=== PATIENT | male | born 1940 | race Caucasian/White ===

== ENCOUNTER 2022-05-19 14:42 | Inpatient (IN) | payer OTHER ==
[~2022-05-19] VITALS: Ht 177.8 cm; Wt 74.9 kg
[2022-05-19] MEDS ORDERED: FURO-151 PO (15:05)
[2022-05-19] MEDS ORDERED: CLOP75TA15 PO (15:05)
[2022-05-19] MEDS ORDERED: AZEL137S7 BNOSTRILS (15:05)
[2022-05-19] MEDS ORDERED: FAMO-132 PO (15:05)
[2022-05-19] MEDS ORDERED: ROSU40TA PO (15:05)
[2022-05-19] MEDS ORDERED: BISO5TAB20 PO (15:05)
[2022-05-19] MEDS ORDERED: LISI2.5T14 PO (15:05)
[2022-05-19] MEDS ORDERED: PRED20TA PO (15:05)
[2022-05-19] MEDS ORDERED: EMPA25TA PO (15:05)
[2022-05-19 15:36] LABS: *BILIRUBIN,URIN NEGATIVE (NEGATIVE); *BLOOD, URINE NEGATIVE (NEGATIVE); *CLARITY,URINE CLEAR (CLEAR); *COLOR,URINE YELLOW (YELLOW); *KETONES,URINE TRACE (NEGATIVE); *UROBILINOGEN,URINE 0.2 E.U./dl (NORMAL); LEUKOCYTE ESTERASE ,URINE NEGATIVE (NEGATIVE); NITRITE, URINE NEGATIVE (NEGATIVE); PH,URINE 5.5 (5.0-8.0)
--- NOTE | 2022-05-19 15:39 | NUR ---
PT IS IN ROOM #2B. DR SPARKS EVALUATED THE PT.
[2022-05-19 15:47] LABS: UGLUCOSE 2+ (NEGATIVE)
[2022-05-19 15:50] LABS: HEMATOCRIT 49.2 % (36.7-47.1); MEAN CORPUSCULAR VOLUME 93.3 fL (73.0-96.2); PLATELET COUNT (AUTO) 253 K/uL (152-348)
[2022-05-19 16:01] LABS: BACTERIA,URINE NONE SEEN /HPF (NONE SEEN); RBC,URINE 0-3 /HPF (0-3); SQUAMOUS EPITHELIAL CELL,UR FEW /HPF (NONE SEEN); WBC,URINE 0-3 /HPF (0-3)
[2022-05-19 16:06] LABS: ALANINE AMINOTRANSFERASE 26 U/L (16-63); ALKALINE PHOSPHATASE 62 U/L (50-136); ASPARTATE AMINOTRANSFERASE 11 U/L (15-37); BILIRUBIN,DIRECT 0.2 mg/dL (0.0-0.2); BILIRUBIN,TOTAL 0.6 mg/dL (0.2-1.0); CARBON DIOXIDE 24 mmol/L (21-32); CHLORIDE 94 mmol/L (98-107); CREATININE 1.6 mg/dL (0.6-1.3); POTASSIUM 5.2 mmol/L (3.5-5.1); TOTAL PROTEIN, SERUM 7.4 g/dL (6.4-8.2); UREA NITROGEN, BLOOD 49 mg/dL (7-18)
[2022-05-19 16:07] LABS: GLUCOSE 577 mg/dL (74-106)
[2022-05-19] MEDS ORDERED: AZITHROMYCIN IV 500 MG in IV DEXTROSE 5% 250 ML IV ONE (16:15)
[2022-05-19] MEDS ORDERED: CEFTRIAXONE 1 G in IV DEXTROSE 5% 50 ML IV ONE (16:15)
[2022-05-19] MEDS ORDERED: INSULIN REGULAR, HUMAN 300 UNIT/3 ML VIAL SQ ONE (16:30)
[2022-05-19] MEDS ORDERED: IV NORMAL SALINE 1000 ML BAG IV ONE (17:15)
[2022-05-19] MEDS ORDERED: CEFTRIAXONE /D5W 50ML IVPB **ER PYXIS IV ONE (17:27)
[2022-05-19] MEDS ORDERED: HUM INSULIN NPH/REG INSULIN HM 70/30 1000 UNITS/10 ML VIAL SQ ONE (17:28)
[2022-05-19] MEDS ORDERED: AZITHROMYCIN 500MG/ D5W 250ML IVPB **ER PYXIS ONLY IV ONE (17:52)
--- NOTE | 2022-05-19 20:40 | NUR ---
Patient has been accepted by Dr Knox
--- NOTE | 2022-05-19 20:41 | NUR ---
called data warehouse manager Kathleen VALADEZ for bed. no beds available. patient will stay in ER
[2022-05-19] MEDS ORDERED: ONDANSETRON 4 MG/2 ML VIAL IV PRN (20:45)
[2022-05-19] MEDS ORDERED: MORPHINE SULFATE 2 MG/1 ML DISP.SYRIN IV PRN (20:45)
[2022-05-19] MEDS ORDERED: ACETAMINOPHEN 325 MG TABLET PO PRN (20:45)
[2022-05-19] MEDS ORDERED: ALBUTEROL SULFATE 2.5 MG/ 0.5 ML NEBU NEB PRN (21:00)
[2022-05-19] MEDS ORDERED: DEXTROSE 50% 50 ML DISP.SYRIN IV PRN (21:00)
--- NOTE | 2022-05-19 21:30 | NUR ---
Spoke to pharmacy regarding medication verification.
[2022-05-19] MEDS: BLOOD SUGAR DIAGNOSTIC 1 EACH STRIP VI SCH (21:57)
[2022-05-19] MEDS ORDERED: DOCUSATE SODIUM 100 MG CAPSULE PO ONE (22:00)
--- NOTE | 2022-05-19 22:00 | NUR ---
Patient is able to ambulate to the restroom without assistance
[2022-05-19] MEDS ORDERED: INSULIN GLARGINE,HUM 300 UNITS/3 ML CARTRIDGE SQ ONE (22:01)
[2022-05-19] MEDS: INSULIN GLARGINE,HUM 300 UNITS/3 ML CARTRIDGE SQ SCH (22:07)
[2022-05-19] MEDS: DOCUSATE SODIUM 100 MG CAPSULE PO SCH (22:10)
--- NOTE | 2022-05-20 05:54 | NUR ---
Patient looking for his "blue bag", no evidence of other belongings at bedside/nurses station
[2022-05-20] MEDS: PANTOPRAZOLE SODIUM 40 MG TABLET.DR PO SCH (07:00)
[2022-05-20 07:01] LABS: HEMATOCRIT 47.3 % (36.7-47.1); MEAN CORPUSCULAR HEMOGLOBIN 31.5 uug (23.8-33.4); PLATELET COUNT (AUTO) 233 K/uL (152-348)
[2022-05-20 07:29] LABS: BILIRUBIN,TOTAL 0.3 mg/dL (0.2-1.0); CREATININE 1.3 mg/dL (0.6-1.3); MAGNESIUM 2.7 mg/dL (1.8-2.4); PHOSPHOROUS 5.6 mg/dL (2.5-4.9); POTASSIUM 3.8 mmol/L (3.5-5.1); TOTAL PROTEIN, SERUM 6.8 g/dL (6.4-8.2)
[2022-05-20] MEDS ORDERED: PANTOPRAZOLE SODIUM 40 MG TABLET.DR PO ONE (07:45)
[2022-05-20] MEDS ORDERED: ALBUTEROL SULFATE 2.5 MG/ 0.5 ML NEBU NEB PRN (07:45)
--- NOTE | 2022-05-20 08:03 | NUR ---
PT IS RESTING IN BED COMFORTABLY NO S/S OF ACUTE DISTRESS. PT ATE BREAKFAST, 80% OF THE TRAY. PT WENT TO RESTROOM TO URINATE. CONTINUE TO MONITOR THE PT.
[2022-05-20] MEDS: BLOOD SUGAR DIAGNOSTIC 1 EACH STRIP VI SCH ×4 (08:12→20:39)
[2022-05-20] MEDS ORDERED: MORPHINE SULFATE 2 MG/1 ML DISP.SYRIN ONE (08:18)
[2022-05-20] MEDS ORDERED: ONDANSETRON 4 MG/2 ML VIAL ONE (08:18)
[2022-05-20] MEDS ORDERED: CLOPIDOGREL 75 MG TABLET ONE (08:28)
[2022-05-20] MEDS ORDERED: LISINOPRIL 10 MG TABLET ONE (08:29)
[2022-05-20] MEDS: INSULIN GLARGINE,HUM 300 UNITS/3 ML CARTRIDGE SQ SCH ×2 (08:35→20:45)
[2022-05-20] MEDS: CLOPIDOGREL 75 MG TABLET PO SCH (08:55)
[2022-05-20] MEDS ORDERED: CEFTRIAXONE 1 G in IV DEXTROSE 5% 50 ML IV SCH ×2 (09:00→10:00)
[2022-05-20] MEDS ORDERED: LISINOPRIL 5 MG TABLET PO SCH (09:00)
[2022-05-20] MEDS ORDERED: AZITHROMYCIN IV 500 MG in IV DEXTROSE 5% 250 ML IV SCH (09:00)
--- NOTE | 2022-05-20 09:58 | NUR ---
REPORT WAS GIVEN TO SPECIAL SERVICES SUPERVISOR. PT WAS TRANSFERED TO ROOM #322.
--- NOTE | 2022-05-20 10:30 | NUR ---
Patient admitted to Telemetry, Vpacing with HR in the 70's. AAO x3 with forgetfulness to time. Patient states he is fatigued and doesn't feel good. States he has been weak for about a week and is moving slower. SOB noted with exertion, on 02 at 2L via NC. Dry cough noted. NO c/o chest pain. Lungs sounds are clear. ABle to ambulate with one person assist to bathroom, patient is continent of bladder. Patient is asking for a blue travel bag, made aware nothing was brought with him. Call light within reach, all needs attended. Patient verbalizes thirst, water provided.
[2022-05-20] MEDS ORDERED: ALBUTEROL SULFATE 2.5 MG/3 ML NEBU NEB PRN (11:13)
[2022-05-20 11:42] VITALS: BP 94/59
[2022-05-20] MEDS: INSULIN REGULAR, HUMAN 300 UNIT/3 ML VIAL SQ PRN ×2 (12:03→16:53)
[2022-05-20 12:13] LABS: THYROID STIMULATING HORMONE 2.186 mIU/mL (0.358-3.740)
[2022-05-20 16:00] VITALS: BP 92/54
[2022-05-20] MEDS: AZITHROMYCIN IV 500 MG in IV DEXTROSE 5% 250 ML IV SCH (16:46)
[2022-05-20] MEDS: CEFTRIAXONE 1 G in IV DEXTROSE 5% 50 ML IV SCH (18:00)
--- NOTE | 2022-05-20 18:07 | NUR ---
Patient pulled out IV when going to bathroom unassisted. Patient is alert x4 but forgetful. Able to start new IV to left FA 20 gauge. Patient tolerated procedure well. Telemetry is vpacing with HR 75 BPM. Denies any discomfort other than fatigue.
--- NOTE | 2022-05-20 19:30 | NUR ---
Received patient lying in bed. AAOx3. In no acute distress. Denies any pain or SOB. On O2 at2LPM via NC in place. O2 sat at 98%. V pacing on tele with HR of 64/min. Needs assessed and attended to. Safety measure initiated and call light within reached.
[2022-05-20 20:10] VITALS: BP 91/59
[2022-05-20] MEDS: DOCUSATE SODIUM 100 MG CAPSULE PO SCH (20:39)
[2022-05-21] VITALS: BP 101/65
[2022-05-21 04:00] VITALS: BP 107/73
[2022-05-21] MEDS: PANTOPRAZOLE SODIUM 40 MG TABLET.DR PO SCH (06:12)
--- NOTE | 2022-05-21 06:34 | NUR ---
Slept well during the night. In no acute distress. Remains on O2 at 2LPM via NC in place. O2 sat at 96%. Denies any pain or SOB. V pacing on tele with HR of 77/min. Needs attended to and met. Safety measure maintained and call light within reached.
[2022-05-21] MEDS: BLOOD SUGAR DIAGNOSTIC 1 EACH STRIP VI SCH ×5 (06:36→20:19)
[2022-05-21 07:11] LABS: HEMATOCRIT 46.3 % (36.7-47.1); MEAN CORPUSCULAR HEMOGLOBIN 30.4 uug (23.8-33.4); PLATELET COUNT (AUTO) 189 K/uL (152-348)
[2022-05-21 07:26] LABS: CREATININE 1.2 mg/dL (0.6-1.3); MAGNESIUM 2.5 mg/dL (1.8-2.4); PHOSPHOROUS 3.6 mg/dL (2.5-4.9); POTASSIUM 3.9 mmol/L (3.5-5.1)
--- NOTE | 2022-05-21 07:30 | NUR ---
Sleeping, appears comfortable. O2 at 2L/NC with O2 sat of 96%
[2022-05-21] MEDS: CLOPIDOGREL 75 MG TABLET PO SCH (08:37)
[2022-05-21] MEDS: INSULIN GLARGINE,HUM 300 UNITS/3 ML CARTRIDGE SQ SCH ×2 (08:39→20:21)
--- NOTE | 2022-05-21 11:00 | NUR ---
Participated with PT/OT. Call light with in reach. Bed alarm on.
[2022-05-21 11:57] VITALS: BP 118/76
[2022-05-21] MEDS: INSULIN REGULAR, HUMAN 300 UNIT/3 ML VIAL SQ PRN (12:09)
[2022-05-21] MEDS: AZITHROMYCIN IV 500 MG in IV DEXTROSE 5% 250 ML IV SCH (15:52)
[2022-05-21 16:10] VITALS: BP 95/62
[2022-05-21] MEDS: CEFTRIAXONE 1 G in IV DEXTROSE 5% 50 ML IV SCH (16:49)
--- NOTE | 2022-05-21 17:00 | NUR ---
BG 69; Apple juice given. BG rechecked, 93; Dinner served.
--- NOTE | 2022-05-21 19:30 | NUR ---
AAOx3. In no acute distress. Denies any pain or SOB. V pacing on tele with HR of 74/min. Iv sit cally left FA intact and patent. Needs assessed and attended to. Safety measure initiated and call light within reached.
[2022-05-21] MEDS: INSULIN REGULAR, HUMAN 300 UNITS/3 ML VIAL SQ PRN (20:20)
[2022-05-21] MEDS: DOCUSATE SODIUM 100 MG CAPSULE PO SCH (20:25)
--- NOTE | 2022-05-22 05:43 | NUR ---
Denies any pain or SOB. V pacing on tele with HR of 80/min. Needs attended to and met. Assisted to toilet PRN. Safety measure maintained and call light within reached.
[2022-05-22] MEDS: PANTOPRAZOLE SODIUM 40 MG TABLET.DR PO SCH (06:02)
[2022-05-22] MEDS: BLOOD SUGAR DIAGNOSTIC 1 EACH STRIP VI SCH ×4 (06:33→21:29)
[2022-05-22 06:58] LABS: HEMATOCRIT 41.5 % (36.7-47.1); MEAN CORPUSCULAR HEMOGLOBIN 30.9 uug (23.8-33.4); MEAN CORPUSCULAR VOLUME 92.5 fL (73.0-96.2); PLATELET COUNT (AUTO) 152 K/uL (152-348)
[2022-05-22 07:07] LABS: CREATININE 1.1 mg/dL (0.6-1.3); MAGNESIUM 2.2 mg/dL (1.8-2.4); PHOSPHOROUS 2.3 mg/dL (2.5-4.9); POTASSIUM 4.1 mmol/L (3.5-5.1)
[2022-05-22] MEDS: INSULIN REGULAR, HUMAN 300 UNIT/3 ML VIAL SQ PRN ×2 (08:36→12:05)
[2022-05-22] MEDS: INSULIN GLARGINE,HUM 300 UNITS/3 ML CARTRIDGE SQ SCH ×2 (09:00→21:30)
[2022-05-22] MEDS: CLOPIDOGREL 75 MG TABLET PO SCH (10:29)
[2022-05-22 12:22] VITALS: BP 105/57
[2022-05-22] MEDS ORDERED: NEUTRA PHOS PACKET PO ONE ×2 (16:00→18:15)
[2022-05-22 17:00] VITALS: BP 92/45
[2022-05-22] MEDS: AZITHROMYCIN IV 500 MG in IV DEXTROSE 5% 250 ML IV SCH (18:22)
[2022-05-22] MEDS: CEFTRIAXONE 1 G in IV DEXTROSE 5% 50 ML IV SCH (18:23)
[2022-05-22] MEDS: INSULIN REGULAR, HUMAN 300 UNITS/3 ML VIAL SQ PRN ×2 (19:08→21:30)
--- NOTE | 2022-05-22 19:52 | NUR ---
Received patient lying in bed. AAOx3. In no apparent distress. No complain of pain or SOB. V pace on tele with HR of 85/min. IV on left FA intact and patent. Needs assessed and attended to. Safety measure initiated and call light within reached.
[2022-05-22 20:00] VITALS: BP 104/62
[2022-05-22] MEDS: DOCUSATE SODIUM 100 MG CAPSULE PO SCH (20:44)
[2022-05-23 04:19] VITALS: BP 117/61
--- NOTE | 2022-05-23 05:09 | NUR ---
In no acute distress. Denies any pain or SOB. NSR with possible V pace on tele with HR of 81/min. Needs attended to and met. Safety measure maintained and call light within reached.
[2022-05-23] MEDS: PANTOPRAZOLE SODIUM 40 MG TABLET.DR PO SCH (06:05)
[2022-05-23 06:36] LABS: HEMATOCRIT 39.6 % (36.7-47.1); MEAN CORPUSCULAR HEMOGLOBIN 30.9 uug (23.8-33.4); MEAN CORPUSCULAR VOLUME 91.8 fL (73.0-96.2); PLATELET COUNT (AUTO) 138 K/uL (152-348)
[2022-05-23 06:44] LABS: CREATININE 0.9 mg/dL (0.6-1.3); MAGNESIUM 2.1 mg/dL (1.8-2.4); PHOSPHOROUS 2.2 mg/dL (2.5-4.9); POTASSIUM 3.9 mmol/L (3.5-5.1)
[2022-05-23] MEDS: BLOOD SUGAR DIAGNOSTIC 1 EACH STRIP VI SCH ×3 (06:50→16:30)
[2022-05-23 08:25] VITALS: BP_SYST 104; BP_SYST 99; BP_DIAS 54; BP_DIAS 59
[2022-05-23] MEDS ORDERED: NEUTRA PHOS PACKET PO ONE (09:15)
[2022-05-23] MEDS: CLOPIDOGREL 75 MG TABLET PO SCH (09:18)
[2022-05-23] MEDS: INSULIN GLARGINE,HUM 300 UNITS/3 ML CARTRIDGE SQ SCH (09:19)
[2022-05-23 11:13] VITALS: BP 96/60
[2022-05-23] MEDS: INSULIN REGULAR, HUMAN 300 UNIT/3 ML VIAL SQ PRN (13:21)
--- NOTE | 2022-05-23 15:00 | NUR ---
DISCHARGE ORDER IN PLACED. MD CLEARED PT FOR DISCHARGE. WILL CALL CM FOR TRANSPORTATION ARRANGE.
[2022-05-23 15:56] VITALS: BP 92/55
[2022-05-23] MEDS: INSULIN REGULAR, HUMAN 300 UNITS/3 ML VIAL SQ PRN (17:33)
--- NOTE | 2022-05-23 17:41 | NUR ---
[facility] FROM [facility] ARRANGE A TRANSPORT FOR THE PT. PT WILL GO BACK TO [facility]. [facility] WILL CALL BACK FOR ETA
[2022-05-23] MEDS: CEFTRIAXONE 1 G in IV DEXTROSE 5% 50 ML IV SCH (18:12)
--- NOTE | 2022-05-23 18:40 | NUR ---
PT IS DISCHARGE AWAITING FOR [facility] @ 1930. WILL ENDORSED TO UPCOMING SHIFT
--- NOTE | 2022-05-23 21:16 | NUR ---
2000h pt is discharged in improved condition; pt's IVHL removed no bleeding noted; dc instructions given by ALLYSON KEENAN; pt is picked up by transport via wheelchair.
[2022-05-24 08:06] LABS: IMMUNOGLOBULIN M, SERUM 120 mg/dL (15-143)
[2022-05-25 09:06] LABS: *ANTI-SCLERODERMA-70 AB <0.2 AI (0.0-0.9); *SJOGREN'S ANTI-SS-A <0.2 AI (0.0-0.9); *SJOGREN'S ANTI-SS-B <0.2 AI (0.0-0.9); *SMITH ANTIBODIES <0.2 AI (0.0-0.9); ANTI-DNA(DS) AB, QN <1 IU/mL (0-9)
[2022-05-26 09:06] LABS: *IGG SUBCLASS 1 280 mg/dL (248-810); *IGG SUBCLASS 2 205 mg/dL (130-555); *IGG SUBCLASS 3 36 mg/dL (15-102); *IGG SUBCLASS 4 57 mg/dL (2-96); *IMMUNOGLOBULIN G, SERUM 682 mg/dL (603-1613)
== END 2022-05-23 20:00 | disposition home health service (06) | DRG 871 ==
LOC: ER 14:42 → TELE3 05-20 08:00
PROVIDERS: ADMIT Registered Nurse; ATTEND Nurse Practitioner Acute Care
DX: A41.9 Sepsis, unspecified organism (principal); G93.41 Metabolic encephalopathy; J15.9 Unspecified bacterial pneumonia; I50.33 Acute on chronic diastolic (congestive) heart failure; N17.9 Acute kidney failure, unspecified; J47.0 Bronchiectasis with acute lower respiratory infection; Z20.822 Contact with and (suspected) exposure to COVID-19; E11.65 Type 2 diabetes mellitus with hyperglycemia; E83.39 Other disorders of phosphorus metabolism; E83.41 Hypermagnesemia; E86.0 Dehydration; E87.5 Hyperkalemia; I25.10 Atherosclerotic heart disease of native coronary artery without angina pectoris; N40.0 Benign prostatic hyperplasia without lower urinary tract symptoms; Z95.0 Presence of cardiac pacemaker; Z95.2 Presence of prosthetic heart valve; J84.10 Pulmonary fibrosis, unspecified; I11.0 Hypertensive heart disease with heart failure; K21.9 Gastro-esophageal reflux disease without esophagitis; R62.7 Adult failure to thrive; Z68.23 Body mass index [BMI] 23.0-23.9, adult; I95.9 Hypotension, unspecified; Z85.46 Personal history of malignant neoplasm of prostate; Z66 Do not resuscitate; Z79.4 Long term (current) use of insulin
CPT/HCPCS: 36415; 71045; 71250; 82784; 83605; 83735; 84100; 84443; 84484; 85025; 85730; 86038; 86803; 87040; 87086; 87806; 93005; 93307; 97161; A4663; G0378; J0456; J0696; J1815; J2270; J2405; J7040; J7050

== ENCOUNTER 2022-06-05 15:36 | Inpatient (IN) | payer OTHER ==
[~2022-06-05] VITALS: Ht 177.8 cm; Wt 74.8 kg
[~2022-06-05 15:36] MED LIST: AZEL137S7 BNOSTRILS; BISO5TAB20 PO; CLOP75TA15 PO; EMPA25TA PO; FAMO-132 PO; LISI2.5T14 PO; PRED20TA PO; ROSU40TA PO
[2022-06-05] MEDS ORDERED: IV NORMAL SALINE 1000 ML BAG IV ONE ×2 (15:45→20:00)
[2022-06-05] MEDS ORDERED: DEXAMETHASONE SOD PHOSPHATE 4 MG INJ IV ONE (15:45)
[2022-06-05 16:20] LABS: *BILIRUBIN,URIN NEGATIVE (NEGATIVE); *CLARITY,URINE CLEAR (CLEAR); *COLOR,URINE YELLOW (YELLOW); *KETONES,URINE NEGATIVE (NEGATIVE); *UROBILINOGEN,URINE 0.2 E.U./dl (NORMAL); LEUKOCYTE ESTERASE ,URINE NEGATIVE (NEGATIVE); NITRITE, URINE NEGATIVE (NEGATIVE); PH,URINE 5.5 (5.0-8.0)
[2022-06-05 16:28] LABS: *BLOOD, URINE TRACE (NEGATIVE); UGLUCOSE 3+ (NEGATIVE)
[2022-06-05 16:30] LABS: BACTERIA,URINE NONE SEEN /HPF (NONE SEEN); SQUAMOUS EPITHELIAL CELL,UR FEW /HPF (NONE SEEN); WBC,URINE 0-3 /HPF (0-3)
[2022-06-05 16:42] LABS: HEMATOCRIT 44.9 % (36.7-47.1); MEAN CORPUSCULAR HEMOGLOBIN 31.1 uug (23.8-33.4); MEAN CORPUSCULAR VOLUME 93.4 fL (73.0-96.2); PLATELET COUNT (AUTO) 215 K/uL (152-348)
[2022-06-05 17:11] LABS: ALANINE AMINOTRANSFERASE 29 U/L (16-63); ALKALINE PHOSPHATASE 56 U/L (50-136); ASPARTATE AMINOTRANSFERASE 8 U/L (15-37); BILIRUBIN,DIRECT 0.1 mg/dL (0.0-0.2); BILIRUBIN,TOTAL 0.3 mg/dL (0.2-1.0); CARBON DIOXIDE 24 mmol/L (21-32); CHLORIDE 93 mmol/L (98-107); CREATININE 1.7 mg/dL (0.6-1.3); TOTAL PROTEIN, SERUM 6.9 g/dL (6.4-8.2); UREA NITROGEN, BLOOD 55 mg/dL (7-18)
[2022-06-05 17:13] LABS: GLUCOSE 514 mg/dL (74-106)
[2022-06-05] MEDS ORDERED: IV LACTATED RINGERS SOLUTION 1,000 ML BAG IV ONE (17:15)
[2022-06-05] MEDS ORDERED: INSULIN REGULAR, HUMAN 300 UNIT/3 ML VIAL IV ONE (17:15)
[2022-06-05] MEDS ORDERED: DEXAMETHASONE SOD PHOSPHATE 4 MG INJ ONE ×2 (17:40→17:41)
[2022-06-05] MEDS ORDERED: INSULIN REGULAR, HUMAN 300 UNIT/3 ML VIAL ONE (17:59)
--- NOTE | 2022-06-05 19:00 | NUR ---
Report to Amara.
--- NOTE | 2022-06-05 19:53 | NUR ---
change of shift report from Aramis VALADEZ
--- NOTE | 2022-06-05 19:58 | NUR ---
Dr. La made aware of pt's BP. gave a total of 2.5 Liters of isotonic crystalloids. ER-MD will order another liter.
--- NOTE | 2022-06-05 20:10 | NUR ---
Patient will be admitted to TELE room 322
[2022-06-05] MEDS ORDERED: MAGNESIUM HYDROXIDE 30 ML LIQUID UDC PO PRN (20:15)
[2022-06-05] MEDS ORDERED: DEXTROSE 50% 50 ML DISP.SYRIN IV PRN (20:15)
[2022-06-05] MEDS ORDERED: HYDROCODONE/APAP 5-325MG TABLET PO PRN (20:15)
[2022-06-05] MEDS ORDERED: REMEDY ESSENTIAL ZINC PASTE 113 GM TP PRN (20:15)
[2022-06-05] MEDS ORDERED: ONDANSETRON 4 MG/2 ML VIAL IV PRN (20:15)
[2022-06-05] MEDS ORDERED: ACETAMINOPHEN 325 MG TABLET PO PRN (20:15)
--- NOTE | 2022-06-05 20:20 | NUR ---
Admitted patient in tele floor under the care of Dr Moss, paced rhythm at 69, no sob no chest pain, patient cooperative with care at the beginning but became paranoid and suspicious when asked his medical history, states "I don't want to discuss medical topic at this time", interview was stopped and follow ER MD notes, cont to monitor. Addendum: 06/06/22 at 0057 by ADI MORLEY RN Admitted patient in tele floor under the care of Dr Moss, paced rhythm at 69, no sob no chest pain, patient cooperative with care at the beginning but became paranoid and suspicious when asked his medical history, states "I don't want to discuss medical topic at this time", interview was stopped and follow ER MD notes, cont to monitor. charting in error.
--- NOTE | 2022-06-05 21:25 | NUR ---
Report given to Bipin VALADEZ.
--- NOTE | 2022-06-05 22:20 | NUR ---
Admitted patient in tele floor under the care of Dr Moss, paced rhythm at 69, no sob no chest pain, patient cooperative with care at the beginning but became paranoid and suspicious when asked his medical history, states "I don't want to discuss medical topic at this time", interview was stopped and follow ER MD notes, cont to monitor.
--- NOTE | 2022-06-05 22:30 | NUR ---
Pt. admitted to TELE room 322, under care of Dr. Moss. Belongs List completed. Will RN aware of patients arrival.
[2022-06-05 23:40] VITALS: BP 98/56
[2022-06-05] MEDS: IV NS 1000 ML 1,000 ML IV SCH (23:46)
[2022-06-05] MEDS: HYDROCORTISONE SOD SUCCINATE 100 MG/2 ML VIAL IV SCH (23:47)
[2022-06-06] MEDS: BLOOD SUGAR DIAGNOSTIC 1 EACH STRIP VI SCH ×5 (00:13→20:47)
[2022-06-06] MEDS: INSULIN REGULAR, HUMAN 300 UNITS/3 ML VIAL SQ PRN ×2 (00:50→20:48)
[2022-06-06 00:51] VITALS: BP 105/56
--- NOTE | 2022-06-06 02:00 | NUR ---
Patient awake apologize for yelling and screaming at staff for no apparent reason, states that he just upset about something, told patient that everything imelda and we understand. Patient wants in a hurry care, wants everything explained to him, respect patient wishes. cont to monitor.
[2022-06-06 04:12] VITALS: BP 101/48
[2022-06-06] MEDS: HYDROCORTISONE SOD SUCCINATE 100 MG/2 ML VIAL IV SCH ×3 (05:34→21:24)
[2022-06-06] MEDS: IV NS 1000 ML 1,000 ML IV SCH ×2 (05:46→10:15)
--- NOTE | 2022-06-06 06:43 | NUR ---
Patient awake multiple episode of coughing since last night, hob elevated, no sob no chest pain, noted, no complain of pain, assisted with toileting, call light within reach.
[2022-06-06 07:35] LABS: HEMATOCRIT 38.8 % (36.7-47.1); MEAN CORPUSCULAR HEMOGLOBIN 31.4 uug (23.8-33.4); PLATELET COUNT (AUTO) 144 K/uL (152-348)
[2022-06-06] MEDS: INSULIN REGULAR, HUMAN 300 UNIT/3 ML VIAL SQ PRN ×3 (07:44→16:19)
[2022-06-06 07:45] LABS: CREATININE 1.1 mg/dL (0.6-1.3); MAGNESIUM 2.2 mg/dL (1.8-2.4); PHOSPHOROUS 4.2 mg/dL (2.5-4.9); POTASSIUM 4.6 mmol/L (3.5-5.1)
[2022-06-06] MEDS: CLOPIDOGREL 75 MG TABLET PO SCH (08:09)
[2022-06-06] MEDS: FAMOTIDINE 20 MG TABLET PO SCH (08:10)
[2022-06-06] MEDS ORDERED: Medication Not On Formulary EA (Empagliflozin (Jardiance) 25 MG) PO SCH (11:00)
[2022-06-06 16:00] VITALS: BP 127/68
[2022-06-06 20:28] VITALS: BP 125/68
[2022-06-07 00:27] VITALS: BP 102/54
[2022-06-07] MEDS: IV NS 1000 ML 1,000 ML IV SCH (02:23)
[2022-06-07 04:24] VITALS: BP 101/65
[2022-06-07] MEDS: HYDROCORTISONE SOD SUCCINATE 100 MG/2 ML VIAL IV SCH ×2 (05:34→14:00)
[2022-06-07 06:20] LABS: HEMATOCRIT 36.4 % (36.7-47.1); MEAN CORPUSCULAR HEMOGLOBIN 31.2 uug (23.8-33.4); PLATELET COUNT (AUTO) 138 K/uL (152-348)
[2022-06-07] MEDS: BLOOD SUGAR DIAGNOSTIC 1 EACH STRIP VI SCH ×3 (06:29→16:30)
[2022-06-07 06:39] LABS: CREATININE 0.8 mg/dL (0.6-1.3); MAGNESIUM 2.2 mg/dL (1.8-2.4); PHOSPHOROUS 2.9 mg/dL (2.5-4.9); POTASSIUM 3.9 mmol/L (3.5-5.1)
[2022-06-07 07:37] VITALS: BP 99/48
[2022-06-07] MEDS: CLOPIDOGREL 75 MG TABLET PO SCH (08:20)
[2022-06-07] MEDS: FAMOTIDINE 20 MG TABLET PO SCH (08:21)
[2022-06-07 16:12] VITALS: BP 102/60
--- NOTE | 2022-06-07 18:22 | NUR ---
dc orders received noted and carried out,dc heplock per md orders,de instruction and education given to the pt .pt left the facility via ambulances in stable condition
== END 2022-06-07 18:24 | DRG 637 ==
LOC: ER 15:36 → TELE3 21:34
PROVIDERS: ADMIT Internal Medicine; ATTEND Internal Medicine
DX: E11.00 Type 2 diabetes mellitus with hyperosmolarity without nonketotic hyperglycemic-hyperosmolar coma (NKHHC) (principal); G93.41 Metabolic encephalopathy; N17.0 Acute kidney failure with tubular necrosis; E87.1 Hypo-osmolality and hyponatremia; E27.49 Other adrenocortical insufficiency; E11.65 Type 2 diabetes mellitus with hyperglycemia; E86.1 Hypovolemia; I11.0 Hypertensive heart disease with heart failure; I25.10 Atherosclerotic heart disease of native coronary artery without angina pectoris; Z79.84 Long term (current) use of oral hypoglycemic drugs; Z85.46 Personal history of malignant neoplasm of prostate; Z20.822 Contact with and (suspected) exposure to COVID-19
CPT/HCPCS: 36415; 71045; 82533; 83605; 83735; 84100; 84484; 85025; 85730; 87040; 87086; 93005; G0378; J1100; J1720; J1815; J7040